=== PATIENT | male | born 1990 | race Caucasian/White ===

== ENCOUNTER 2019-08-30 06:12 | Day surgery (SDC) | payer MEDICAID ==
[2019-08-26 13:23] LABS: BASOPHILS 0.3 % (0-2); HEMATOCRIT 49.8 % (42.0-54.0); HEMOGLOBIN 16.2 g/dL (13.5-17.5); IMMATURE GRANULOCYTES 0.2 % (0-5); LYMPHOCYTES 32.9 % (15-50); MCH 29.7 pg (26.0-34.0); MCHC 32.5 g/dL (31.0-37.0); MCV 91.2 fL (80.0-100.0); MEAN PLATELET VOLUME 10.1 fL (7.4-10.4); NEUTROPHILS 57.6 % (40-80); PLATELET COUNT 258 10x3/uL (130-400); RBC 5.46 10x6/uL (4.20-6.10); RDW 13.7 % (11.5-14.5); WBC 6.1 10x3/uL (4.8-10.8)
[2019-08-26 13:25] LABS: CALC OSMOLALITY 276 mosm/kg (275-300); CALCIUM 9.2 mg/dL (8.5-10.1); CARBON DIOXIDE 31.5 mmol/L (21.0-32.0); CHLORIDE - SERUM 102 mmol/L (98-107); GLUCOSE 88 mg/dL (74-106); POTASSIUM - SERUM 4.5 mmol/L (3.5-5.1); SODIUM 139 mmol/L (136-145); UREA NITROGEN 12 mg/dL (7-18); eGFR NON AFRICAN AMERICAN > 90 mL/min (90-120)
[~2019-08-30] VITALS: Ht 177.8 cm; Wt 66.2 kg
--- NOTE | ~2019-08-30 | OP ---
PATIENT NAME: ASHELY PRATT MEDICAL RECORD: [id number] :89 LOCATION:[facility] ADMISSION DATE: SURGEON: RON SMALLS MD DATE OF OPERATION: 08/30/2019 PREOPERATIVE DIAGNOSES: 1. Bleeding internal hemorrhoids. 2. Tobacco-dependence syndrome. 3. Posttraumatic stress disorder. POSTOPERATIVE DIAGNOSES: 1. Bleeding internal hemorrhoids. 2. Tobacco-dependence syndrome. 3. Posttraumatic stress disorder. PROCEDURE: PPH stapled hemorrhoidectomy. SURGEON: Ron Smalls MD REPORT OF PROCEDURE: The patient was placed in the jackknife prone position and the perianal region was prepped and draped in sterile fashion. We did a 360-degree inspection of the patient's anal region. The patient had a large pedunculated internal hemorrhoids present with some mixed external component, which was smaller. A PPH anoscope was then inserted and sutured down on all 4 sides with 3-0 silks. A 2-0 Prolene was used to make a pursestring in the distal aspect of the rectum. Once this was in place, then the PPH stapler was inserted. As we cinched this down tightly, we fired the device and was able to remove a large core of tissue. There was bleeding from a couple of spots and this was oversewn with 2-0 chromics to discontinue the bleeding. At this point, we irrigated out the anal region with normal saline. We see no signs of any bleeding and the staple line appeared to be intact. At this point, the anoscope was removed. The patient's external anal redundant tissue had been pulled down tightly. COMPLICATIONS: None. CONDITION: Stable. ANESTHESIA: General endotracheal and a piece of [place] with [place]. TRANSINT:[id number] Voice Confirmation ID: [id number] DOCUMENT ID: [id number] RON SMALLS MD CC: [id number] DICTATION DATE: 08/30/19907 BOBBIN TRUCKER: 08/30/19 1007 REG [facility] [address] [place] [address]
[~2019-08-30 06:12] MED LIST: ATARAX 25 MG TA25 MG PO; PAXIL20 MG PO; TEGRETOL 100 M100 MG PO; TRAZODONE HCL150 MG PO; ZOLOFT50 MG PO
[2019-08-30 06:50] VITALS: BP 103/69; Ht 177.8 cm; Wt 66.2 kg
--- NOTE | 2019-08-30 07:46 | NUR ---
DR RUIZ NOTIFIED AND REVIEWED PT'S BEHAVIOR AND ASSESSMENT. PT IS A LOW RISK. RESOURCES GIVEN AND HE VERBALIZES UNDERSTANDING.
[2019-08-30] MEDS ORDERED: HYDROCODON-ACE1 EA10 PO (09:03)
--- NOTE | 2019-08-30 10:03 | NUR ---
0168 UP TO BATHROOM. AMBULATORY WITHOUT DIFFICULTY. UNABLE TO VOID. BACK TO BED. SERVED JUICE & JELLO. ANTONY. @ BEDSIDE. Cali BENDER R.N.
--- NOTE | 2019-08-30 11:06 | NUR ---
1105 UP TO BATHROOM. STATES HAD BOWEL MOVEMENT. BRIGHT RED BLOOD NOTED IN TOILET BOWL. REPLIED NO, WHEN ASKED IF ANY RELIEF NOTED FROM PAIN PILL. IV PATENT @ KVO RATE. RESTING QUIETLY IN BED. FATHER @ BEDSIDE. Cali BENDER R.N.
--- NOTE | 2019-08-30 11:42 | NUR ---
1130 PT REQUESTS DISCHARGE. STATES PAIN IS NOW 08/13. IV COMPLETED & DC'ED WITH CATH INTACT. DRESSING. Cali BENDER R.N. 1130 DRESSED. AWAKE & ALERT. GIVEN DISCHARGE INSTRUCTIONS INCLUDING RTC APPT., MED REC., RX: NORCO 10/325MG & INSTRUCTIONS TO TAKE STOOL SOFTENER TWICE DAILY & MOM OR MIRALAX DAILY. PT STATES UNDERSTANDING. TO PRIVATE CAR PER WHEELCHAIR BY STAFF. HOME WITH FATHER. Cali BENDER R.N.
== END 2019-08-30 11:35 | disposition home or self-care (01) ==
LOC: D.OPS 06:12 → D.PAN 07:30 → D.OPS 08:30
PROVIDERS: ATTEND Surgery
DX: K64.8 Other hemorrhoids (principal); F17.200 Nicotine dependence, unspecified, uncomplicated; F43.10 Post-traumatic stress disorder, unspecified